=== PATIENT | female | born 1995 | race Caucasian/White ===

== ENCOUNTER 2018-11-14 18:19 | Emergency (ER) | payer OTHER ==
[2018-11-14] MEDS ORDERED: KETOROLAC 30 MG/1 ML SDV IVP ONE (19:50)
--- NOTE | 2018-11-14 19:52 | EDPHY ---
H & P Time Seen by Provider: 11/14/18 19:18 HPI/ROS: CHIEF COMPLAINT: Right flank pain HISTORY OF PRESENT ILLNESS: Patient is a 23-year-old female who presents emergency department with right flank pain and suprapubic pain. Patient's symptoms started on Saturday. She had "UTI symptoms."She described dysuria frequency. She went to [facility] and had a negative urine study. Culture was sent. She was started on antibiotics (macrobid). She took the entire course of antibiotics but her symptoms did not subside. She now has right flank pain radiating to her suprapubic area. Patient return to [facility] and was told that her urine culture was negative. Her test today was negative. No fevers or chills. No nausea or vomiting. REVIEW OF SYSTEMS: 10 systems were reveiwed and are negative with the exception of the elements mentioned in the history of present illness. Past Medical/Surgical History: Negative Smoking Status: Never smoked Physical Exam: Vitals noted GENERAL: Well-appearing, in no acute distress, alert. HEENT: Eyes normal to inspection, normal pharynx, no signs of dehydration. NECK: Normal, supple. RESPIRATORY: Clear to auscultation bilaterally, no rales, rhonchi or wheezing. CVS: Regular rate and rhythm, no rubs, murmurs, or gallops. ABDOMEN: Soft, mild suprapubic tenderness palpation with no rebound or guarding , nondistended, no organomegaly. BACK: Normal to inspection, no CVA tenderness. SKIN: Normal color, no rash, warm, dry. No pallor. EXTREMITIES: No pedal edema, no calf tenderness, no Homans sign or cords, no joint swelling. NEURO/PSYCH: Alert and oriented, normal mood and affect, normal motor sensory exam. No obvious cranial nerve deficit. Constitutional: Initial Vital Signs Temperature (C) 36.8 C 11/14/18 18:23 Heart Rate 100 11/14/18 18:23 Respiratory Rate 17 11/14/18 18:23 Blood Pressure 108/86 H 11/14/18 18:23 O2 Sat (%) 97 11/14/18 18:23 O2 Delivery Mode Room Air Allergies/Adverse Reactions: No Known Allergies Allergy (Verified 11/14/18 18:23) Home Medications: Medication Instructions Recorded Misa 28 Tablet 10/17/15 Gabapentin 11/14/18 Hydrocodone/APAP 5/325 [Gattman 1 - 2 tab PO Q4 #11 tab 11/14/18 5/325 (RX)] Ibuprofen 600 mg PO Q6 #7 tablet 11/14/18 Medical Decision Making - Diagnostics Imaging Results: Imaging Impressions Abdomen/Pelvis CT 11/14/18 19:49 Impression: 1. No acute findings in the abdomen or pelvis. 2. Mild fullness of the renal pelves and ureters bilaterally, with no visible etiology. Findings discussed with Lulu Petit M.D., on November 14, 2018 at 2033. Attention: This CT examination is specifically designed to evaluate patients who are clinically suspected of having acute obstructive uropathy. This examination does not use radiographic contrast and provides only a limited evaluation of the abdomen, pelvis, and retroperitoneum. If there is further clinical suspicion for pathological conditions other than obstructive uropathy, a complete CT evaluation of the abdomen and pelvis utilizing intravenous and enteric contrast should be considered. ED Course/Re-evaluation: In the emergency department I discussed possible etiologies with the patient. I answered all of her questions. An IV was placed. Laboratory studies and CT were ordered. Patient given Toradol 30 mg IV UA: Positive for blood. The CBC is normal. Chemistry is notable for low sodium 133. CT of the abdomen pelvis: Please refer the dictated report. No acute disease noted. 2114: I rechecked the patient. She was feeling much better after the Toradol. I discussed the results. She needs close follow-up with both work and Urology. She is given Urology contact information. She is given warnings prior to leaving. She will return worsening symptoms. Differential Diagnosis: My differential includes but is not limited to kidney stone urinary tract infection, pyelonephritis, , ectopic , cystitis - Data Points Laboratory Results: Laboratory Results 11/14/18 19:26 11/14/18 19:26 11/14/18 11/14/18 11/14/18 19:26 19:26 19:26 WBC 8.57 10^3/uL 10^3/uL (3.80-9.50) RBC 4.90 10^6/uL 10^6/uL (4.18-5.33) Hgb 15.6 g/dL g/dL (12.6-16.3) Hct 43.9 % % (38.0-47.0) MCV 89.6 fL fL (81.5-99.8) MCH 31.8 pg pg (27.9-34.1) MCHC 35.5 g/dL g/dL (32.4-36.7) RDW 11.8 % % (11.5-15.2) Plt Count 265 10^3/uL 10^3/uL (150-400) MPV 9.0 fL fL (8.7-11.7) Neut % (Auto) 47.3 % % (39.3-74.2) Lymph % (Auto) 40.6 % % (15.0-45.0) Baker % (Auto) 9.7 % % (4.5-13.0) Eos % (Auto) 1.4 % % (0.6-7.6) Baso % (Auto) 0.9 % % (0.3-1.7) Nucleat RBC Rel Count 0.0 % % (0.0-0.2) Absolute Neuts (auto) 4.05 10^3/uL 10^3/uL (1.70-6.50) Absolute Lymphs (auto) 3.48 10^3/uL H 10^3/uL (1.00-3.00) Absolute Monos (auto) 0.83 10^3/uL H 10^3/uL (0.30-0.80) Absolute Eos (auto) 0.12 10^3/uL 10^3/uL (0.03-0.40) Absolute Basos (auto) 0.08 10^3/uL 10^3/uL (0.02-0.10) Absolute Nucleated RBC 0.00 10^3/uL 10^3/uL (0-0.01) Immature Gran % 0.1 % % (0.0-1.1) Immature Gran # 0.01 10^3/uL 10^3/uL (0.00-0.10) Sodium 133 mEq/L L mEq/L (135-145) Potassium 3.9 mEq/L mEq/L (3.5-5.2) Chloride 96 mEq/L L mEq/L (97-110) Carbon Dioxide 26 mEq/l mEq/l (22-31) Anion Gap 11 mEq/L mEq/L (6-14) BUN 9 mg/dL mg/dL (7-23) Creatinine 0.8 mg/dL mg/dL (0.6-1.0) Estimated GFR > 60 Glucose 89 mg/dL mg/dL (70-100) Calcium 9.5 mg/dL mg/dL (8.5-10.4) Beta HCG, Qual NEGATIVE Urine Color Urine Appearance Urine pH Ur Specific Pendroy Urine Protein Urine Ketones Urine Blood Urine Nitrate Urine Bilirubin Urine Urobilinogen Ur Leukocyte Esterase Urine RBC Urine WBC Ur Epithelial Cells Urine Mucus Urine Glucose 11/14/18 18:27 WBC RBC Hgb Hct MCV MCH MCHC RDW Plt Count MPV Neut % (Auto) Lymph % (Auto) Baker % (Auto) Eos % (Auto) Baso % (Auto) Nucleat RBC Rel Count Absolute Neuts (auto) Absolute Lymphs (auto) Absolute Monos (auto) Absolute Eos (auto) Absolute Basos (auto) Absolute Nucleated RBC Immature Gran % Immature Gran # Sodium Potassium Chloride Carbon Dioxide Anion Gap BUN Creatinine Estimated GFR Glucose Calcium Beta HCG, Qual Urine Color YELLOW Urine Appearance CLEAR Urine pH 6.0 (5.0-7.5) Ur Specific Pendroy 1.020 (1.002-1.030) Urine Protein NEGATIVE (NEGATIVE) Urine Ketones TRACE H (NEGATIVE) Urine Blood 2+ H (NEGATIVE) Urine Nitrate NEGATIVE (NEGATIVE) Urine Bilirubin NEGATIVE (NEGATIVE) Urine Urobilinogen NEGATIVE EU EU (0.2-1.0) Ur Leukocyte Esterase NEGATIVE (NEGATIVE) Urine RBC 5-10 /hpf H /hpf (0-3) Urine WBC 0-1 /hpf /hpf (0-3) Ur Epithelial Cells TRACE /lpf /lpf (NONE-1+) Urine Mucus 2+ /lpf H /lpf (NONE-1+) Urine Glucose NEGATIVE (NEGATIVE) Medications Given: Discontinued Medications Ketorolac Tromethamine (Toradol) 30 mg IVP EDNOW ONE Stop: 11/14/18 19:51 Last Admin: 11/14/18 20:04 Dose: 30 mg Departure - Departure Disposition: Home, Routine, Self-Care Clinical Impression: Hematuria, Flank pain Abdominal pain Qualifiers: Abdominal location: generalized Qualified Code(s): R10.84 - Generalized abdominal pain Condition: Good Instructions: Flank Pain (ED), Hematuria (ED) Additional Instructions: You need to call Saturday morning to make an appointment with Urology. Return with increasing pain, fever or any other concerns. Your CT scan did not show any kidney stones or other abnormality. Referrals: Harjinder Delgado MD [Medical Doctor] - 5-7 days, call for appt. [facility] G[facility],. [Clinic] - 5-7 days, if not improved Prescriptions: Hydrocodone/APAP 5/325 [Gattman 5/325 (RX)] 1 - 2 tab PO Q4 #11 tab Ibuprofen 600 mg PO Q6 #7 tablet
[2018-11-14 19:56] LABS: PLATELET COUNT 265 10^3/uL (150-400)
[2018-11-14 21:36] VITALS: BP 128/74
== END 2018-11-14 21:57 | disposition home or self-care (01) ==
DX: R31.9 Hematuria, unspecified (principal); R10.84 Generalized abdominal pain
CPT/HCPCS: 96374; J1885